=== PATIENT | female | born 1930 | race Caucasian/White ===

== ENCOUNTER 2016-10-03 07:17 | Observation (INO) | payer OTHER, BC ==
--- NOTE | 2016-10-03 07:29 | EDPHY ---
HPI/HX/ROS/PE/MDM Narrative: CHIEF COMPLAINT: Nausea HISTORY OF PRESENT ILLNESS: This patient is an 86 year old woman presenting with acute nausea and urgency to have a bowel movement, onset this morning. It is associated with mild-moderate abdominal discomfort. She was able to walk to the bathroom, but did not have any episodes of vomiting or diarrhea. She denies fever, flank pain, dysuria, or other urinary complaints. She has had a cough for the last four days, see review of systems, however denies nausea, vomiting, or diarrhea before this morning. REVIEW OF SYSTEMS: The patient was seen at [facility] yesterday, for evaluation of a four day history of mildly productive cough. She was diagnosed with a viral bronchitis and prescribed an albuterol inhaler. She did not fill the albuterol inhaler because she did not feel that it was necessary. She denies shortness of breath or chest pain. Denies history of COPD or pulmonary disease. Aside from elements discussed in the HPI, a comprehensive 10-point review of systems was reviewed and is negative (although somewhat limited secondary to poor historian). 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 Chakraborty, non-smoker, no alcohol, lives alone, VITAL SIGNS: Reviewed by me GENERAL: Well-developed, well-nourished, resting comfortably in no respiratory distress. HEENT: Atraumatic. Eyes: No icterus, no injection. Mouth: moist mucous membranes. No erythema or lesions. Neck: supple with no adenopathy. LUNGS: Clear to auscultation bilaterally, no wheezes, rhonchi or rales. CARDIAC: Regular rate and rhythm, harsh systolic murmur. ABDOMEN: Soft, mild epigastric tenderness, nondistended, bowel sounds normal, lower abdomen midline scar. BACK: No CVA tenderness. EXTREMITIES: No trauma. No edema. Range of motion is normal throughout. NEURO: Alert and oriented, grossly nonfocal. SKIN: Warm and dry, no rash. PSYCHIATRIC: Normal mentation, no agitation. Portions of this note were transcribed by a medical practice manager. I personally performed a history, physical exam, medical decision making, and confirmed accuracy of information the transcribed note. ED Course: 12-lead EKG interpreted by myself demonstrates sinus rhythm, rate 78, with PVCs. See formal interpretation in [facility]. An IV has been established. Chest X-ray interpreted by myself shows no focal infiltrate, borderline enlarged cardiac silhouette. The patient is mildly hyponatremic with sodium of 129. Workup is otherwise normal. 1045: Re-evaluation, the patient reports feeling worse with increased nausea, generalized abdominal discomfort, and belching. IV Protonix and abdomen CT ordered. 1155: Abdomen CT is negative for acute findings. The patient continues to feel poorly. She does not feel comfortable with discharge to home. She lives alone. The patient will be admitted to the hospital. I consulted with the hospitalist service. Dr. Dixon accepts admission. MDM: After obtaining the patients history and performing an examination, differential diagnosis of patients nausea, pain, and respiratory complaints was considered included but not limited to appendicitis, cholecystitis, gastritis, pancreatitis, kidney stones, urinary tract infections, influenza, gastroenteritis, diverticulitis, bronchitis, electrolyte abnormalities, dehydration and other causes. - Data Points Imaging Results: Imaging Impressions Chest X-Ray 10/03/16 07:42 Impression: 1. Query COPD/chronic bronchitis. 2. See above report for additional findings. Laboratory Results: Laboratory Results 10/03/16 07:42 10/03/16 07:42 10/03/16 10/03/16 10/03/16 10:40 09:07 07:42 WBC RBC Hgb Hct MCV MCH MCHC RDW Plt Count MPV Neut % (Auto) Lymph % (Auto) [place] % (Auto) Eos % (Auto) Baso % (Auto) Nucleat RBC Rel Count Absolute Neuts (auto) Absolute Lymphs (auto) Absolute Monos (auto) Absolute Eos (auto) Absolute Basos (auto) Absolute Nucleated RBC Immature Gran % Immature Gran # D-Dimer 0.42 ug/mLFEU ug/mLFEU (0.00-0.50) Sodium Potassium Chloride Carbon Dioxide Anion Gap BUN Creatinine Estimated GFR Glucose Calcium Total Bilirubin Conjugated Bilirubin Unconjugated Bilirubin AST ALT Alkaline Phosphatase Troponin I Total Protein Albumin Lipase Urine Color YELLOW Urine Appearance HAZY Urine pH 7.0 (5.0-7.5) Ur Specific [place] 1.012 (1.002-1.030) Urine Protein NEGATIVE (NEGATIVE) Urine Ketones 2+ H (NEGATIVE) Urine Blood NEGATIVE (NEGATIVE) Urine Nitrate NEGATIVE (NEGATIVE) Urine Bilirubin NEGATIVE (NEGATIVE) Urine Urobilinogen NEGATIVE EU EU (0.2-1.0) Ur Leukocyte Esterase NEGATIVE (NEGATIVE) Ur Culture Indicated? NOT INDICATED (NI) Urine Glucose NEGATIVE (NEGATIVE) Influenza A & B (PCR) Pending 10/03/16 10/03/16 07:42 07:42 WBC 9.28 10^3/uL 10^3/uL (3.80-9.50) RBC 4.62 10^6/uL 10^6/uL (4.18-5.33) Hgb 15.0 g/dL g/dL (12.6-16.3) Hct 41.9 % % (38.0-47.0) MCV 90.7 fL fL (81.5-99.8) MCH 32.5 pg pg (27.9-34.1) MCHC 35.8 g/dL g/dL (32.4-36.7) RDW 12.8 % % (11.5-15.2) Plt Count 228 10^3/uL 10^3/uL (150-400) MPV 10.6 fL fL (8.7-11.7) Neut % (Auto) 48.0 % % (39.3-74.2) Lymph % (Auto) 43.1 % % (15.0-45.0) [place] % (Auto) 8.2 % % (4.5-13.0) Eos % (Auto) 0.1 % L % (0.6-7.6) Baso % (Auto) 0.4 % % (0.3-1.7) Nucleat RBC Rel Count 0.0 % % (0.0-0.2) Absolute Neuts (auto) 4.45 10^3/uL 10^3/uL (1.70-6.50) Absolute Lymphs (auto) 4.00 10^3/uL H 10^3/uL (1.00-3.00) Absolute Monos (auto) 0.76 10^3/uL 10^3/uL (0.30-0.80) Absolute Eos (auto) 0.01 10^3/uL L 10^3/uL (0.03-0.40) Absolute Basos (auto) 0.04 10^3/uL 10^3/uL (0.02-0.10) Absolute Nucleated RBC 0.00 10^3/uL 10^3/uL (0-0.01) Immature Gran % 0.2 % % (0.0-1.1) Immature Gran # 0.02 10^3/uL 10^3/uL (0.00-0.10) D-Dimer Sodium 129 mEq/L L mEq/L (134-144) Potassium 3.3 mEq/L L mEq/L (3.5-5.2) Chloride 90 mEq/L L mEq/L (97-110) Carbon Dioxide 27 mEq/l mEq/l (22-31) Anion Gap 12 mEq/L mEq/L (8-16) BUN 13 mg/dL mg/dL (7-23) Creatinine 0.8 mg/dL mg/dL (0.6-1.0) Estimated GFR > 60 Glucose 104 mg/dL H mg/dL (70-100) Calcium 9.5 mg/dL mg/dL (8.5-10.4) Total Bilirubin 0.8 mg/dL mg/dL (0.1-1.4) Conjugated Bilirubin 0.3 mg/dL mg/dL (0.0-0.5) Unconjugated Bilirubin 0.5 mg/dL mg/dL (0.0-1.1) AST 32 IU/L IU/L (14-46) ALT 34 IU/L IU/L (9-52) Alkaline Phosphatase 66 IU/L IU/L (38-126) Troponin I 0.018 ng/mL ng/mL (0-0.034) Total Protein 6.7 g/dL g/dL (6.3-8.2) Albumin 4.3 g/dL g/dL (3.5-5.0) Lipase 122.0 IU/L IU/L (23-300) Urine Color Urine Appearance Urine pH Ur Specific [place] Urine Protein Urine Ketones Urine Blood Urine Nitrate Urine Bilirubin Urine Urobilinogen Ur Leukocyte Esterase Ur Culture Indicated? Urine Glucose Influenza A & B (PCR) Medications Given: Discontinued Medications Sodium Chloride (Ns) 500 mls @ 0 mls/hr IV ONCE ONE PRN Reason: As Directed Stop: 10/03/16 07:42 Last Admin: 10/03/16 07:54 Dose: 500 mls Ondansetron HCl (Zofran) 4 mg IVP EDNOW ONE Stop: 10/03/16 07:42 Last Admin: 10/03/16 07:55 Dose: 4 mg Pantoprazole Sodium (Protonix) 40 mg IVP EDNOW ONE Stop: 10/03/16 10:48 Last Admin: 10/03/16 11:09 Dose: 40 mg General Time Seen by Provider: 10/03/16 07:27 Initial Vital Signs: Initial Vital Signs Temperature (C) 36.7 C 10/03/16 07:17 Heart Rate 85 10/03/16 07:17 Respiratory Rate 16 10/03/16 07:17 Blood Pressure 196/68 H 10/03/16 07:17 O2 Sat (%) 94 10/03/16 07:17 O2 Delivery Mode Room Air Allergies/Adverse Reactions: codeine [Codeine] Allergy (Unknown, Verified 08/26/15 05:06) oxycodone HCl [From Percocet] Allergy (Unknown, Verified 08/26/15 05:06) Home Medications: Medication Instructions Recorded Aspirin [Aspirin 81mg (*)] 81 mg PO DAILY 10/30/12 Lisinopril [Zestril 40 mg (*)] 40 mg PO DAILY 10/30/12 Multivitamins [Multivitamin (*)] 1 each PO DAILY 10/30/12 Polyethylene Glycol 3350 [Miralax 17 gm PO DAILY 10/30/12 17 gm (*)] Pramipexole Di-HCl [Mirapex 0.25 0.25 mg PO HS 10/30/12 mg (*)] Nortriptyline HCl [Pamelor 10 mg 10 mg PO DAILY 06/17/14 (*)] Gabapentin 1,200 mg PO BID 10/03/16 amLODIPine BESYLATE [Norvasc 2.5 2.5 mg PO DAILY 10/03/16 mg (*)] Departure - Departure Disposition: [facility] Acute Clinical Impression: Hyponatremia, Nausea Abdominal pain Qualifiers: Abdominal location: epigastric Qualified Code(s): R10.13 - Epigastric pain Condition: Good Report Scribed for: Jeannie Watkins Report Scribed by: Lupe Crystal Date of Report: 10/03/16 Time of Report: 07:37
--- NOTE | 2016-10-03 07:29 | CPEKG ---
Heart Rate: 78 RR Interval: 769 P-R Interval: 164 QRSD Interval: 94 QT Interval: 416 QTC Interval: 474 P [place]: 61 QRS [place]: -24 T Wave [place]: 36 EKG Severity - ABNORMAL ECG - EKG Impression: SINUS RHYTHM EKG Impression: LEFT VENTRICULAR HYPERTROPHY Electronically Signed By: Jeannie Watkins 03-Oct-2016 16:53:23
[2016-10-03] MEDS ORDERED: NS 500 ML IV ONE (07:41)
[2016-10-03] MEDS ORDERED: ONDANSETRON 4 MG/2 ML VIAL IVP ONE (07:41)
[2016-10-03 07:59] LABS: % IMMATURE GRANULYOCYTES 0.2 % (0.0-1.1); ABSOLUTE IMMATURE GRANULOCYTES 0.02 10^3/uL (0.00-0.10); ADD DIFF? NO; ADD MORPH? NO; ADD SCAN? NO; ATYPICAL LYMPHOCYTE FLAG 30 (0-99); FRAGMENT RBC FLAG 0 (0-99); HEMATOCRIT 41.9 % (38.0-47.0); LEFT SHIFT FLG 0 (0-99); LIPEMIA HEMOLYSIS FLAG 90 (0-99); MEAN CELL HEMOGLOBIN 32.5 pg (27.9-34.1); MEAN CELL HEMOGLOBIN CONCENTR. 35.8 g/dL (32.4-36.7); MEAN CELL VOLUME 90.7 fL (81.5-99.8); MEAN PLATELET VOLUME 10.6 fL (8.7-11.7); PLATELET CLUMPS FLAG 30 (0-99); PLATELET COUNT 228 10^3/uL (150-400); RED BLOOD CELL COUNT 4.62 10^6/uL (4.18-5.33); RED CELL DISTRIBUTION WIDTH 12.8 % (11.5-15.2)
[2016-10-03 08:08] LABS: ALANINE AMINOTRANSFERASE 34 IU/L (9-52); ALBUMIN 4.3 g/dL (3.5-5.0); ALKALINE PHOSPHATASE 66 IU/L (38-126); ANION GAP 12 mEq/L (8-16); ASPARTATE AMINOTRANSFERASE 32 IU/L (14-46); BILIRUBIN,TOTAL 0.8 mg/dL (0.1-1.4); BILIRUBIN-CONJUGATED 0.3 mg/dL (0.0-0.5); BILIRUBIN-UNCONJUGATED 0.5 mg/dL (0.0-1.1); CALCIUM 9.5 mg/dL (8.5-10.4); CARBON DIOXIDE 27 mEq/l (22-31); CHLORIDE 90 mEq/L (97-110); CREATININE 0.8 mg/dL (0.6-1.0); GLOMERULAR FILTRATION RATE > 60; GLUCOSE 104 mg/dL (70-100); POTASSIUM 3.3 mEq/L (3.5-5.2); SODIUM 129 mEq/L (134-144); TOTAL PROTEIN 6.7 g/dL (6.3-8.2)
[2016-10-03 08:20] LABS: TROPONIN I 0.018 ng/mL (0-0.034)
[2016-10-03 10:17] LABS: COLOR YELLOW; LEUKOCYTE ESTERASE,URINE NEGATIVE (NEGATIVE); NITRITE,URINE NEGATIVE (NEGATIVE)
[2016-10-03] MEDS ORDERED: PANTOPRAZOLE SODIUM 40 MG VIAL IVP ONE (10:47)
[2016-10-03] MEDS ORDERED: IOPAMIDOL (ISOVUE-300) 100 ML BTL IV ONE (10:50)
[2016-10-03] MEDS ORDERED: NS 100 ML BAG IV ONE (10:55)
[2016-10-03] MEDS ORDERED: ONDANSETRON 4 MG/2 ML VIAL IVP PRN (15:54)
[2016-10-03] MEDS ORDERED: ACETAMINOPHEN 325 MG TAB PO PRN (15:54)
[2016-10-03] MEDS ORDERED: ZOLPIDEM TARTRATE 5 MG TAB PO PRN (15:54)
[2016-10-03] MEDS ORDERED: NS 1,000 ML IV SCH (16:00)
--- NOTE | 2016-10-03 17:54 | HOSPPROG ---
Hospitalist Progress Note Assessment/Plan: HISTORY AND PHYSICAL CC:Cough HISTORY: This patient came to the ER today with complaint of 3 days of coughing which has been mildly productive of slightly discolored phlegm. There has been no chest pain shortness of breath or fever symptoms. She has not checked her temperature. Today she developed some abdominal ache and mild nausea but did not have any vomiting or change in bowel function. For these reasons she presented to the emergency room. Notably she was seen at an urgent care for the cough 2 days ago and was diagnosed with possible bronchitis and given a prescription for some steroid. She did not fill out the prescription for steroid. ROS: A comprehensive 10 system review revealed no other significant findings PAST MEDICAL HISTORY: 3 spine surgeries FAMILY MEDICAL HISTORY: No significant illnesses she is aware of in family members SOCIAL HISTORY: her 3 years ago. She had been living here in [facility] in [place] until 3 months ago when she moved to [facility]. She has had quite a bit of assistance getting moved into [facility] but is living in the independent living apartment section. She feels she is thriving well there overall. MEDICATIONS: The patients list has been reconciled by our clinical pharmacist in the EMR. I have reviewed the list and ordered appropriate medicines. PHYSICAL EXAMINATION: Vital Signs: Stable without fever Examination: General: alert, oriented, good mentation, relaxed Skin: warm, dry, good color, no rash HEENT: normal Neck: no mass or jvd Resps: relaxed Lungs: clear breath sounds Heart: regular, no murmur Abdomen: soft, nondistended, nontender, +BS, no mass Upper Extremities: normal Lower Extremities: no edema, warm No Bleeding or bruising Neurologic: normal speech/language, normal panel coverer, no focal weakness IV site: looks normal LABORATORY DATA: laboratory data are reviewed and unremarkable test for influenza is negative RADIOLOGY STUDIES: CT scan of the abdomen and chest x-ray are both done in the ER. I have reviewed the images for both of these studies and I do not find any significant Acuteabnormality in either of the studies. she does have remarkable hyperexpansion of her lungs on chest x-ray but denies any history of smoking. I have reviewed the radiologist's report as well. ASSESSMENT: 1-Probable upper respiratory infection, viral 2-Generalized weakness due to above not feeling safe to ambulate at home all PLANS: Will observe the patient here over night and give some gentle hydration reassess her ambulation in the morning. I suspect she will do quite well. will check a viral respiratory panel I have reviewed the patient's case in detail with Dr. Watkins Objective: Vital Signs Temp Pulse Resp BP Pulse Ox 36.9 C 84 18 151/71 H 93 10/03/16 16:00 10/03/16 16:00 10/03/16 16:00 10/03/16 16:00 10/03/16 16:00 10/02/16 10/03/16 10/04/16 06:59 06:59 06:59 Intake Total 600 Balance 600 ICD10 Worksheet Patient Problems: Problems Problem Status Onset Hyponatremia Acute Nausea Acute
[2016-10-03] MEDS ORDERED: PRAMIPEXOLE 0.25 MG TAB PO SCH ×2 (18:00→21:00)
[2016-10-03] MEDS: GABAPENTIN 400 MG CAP PO SCH (20:56)
[2016-10-03] MEDS ORDERED: NON-FORMULARY NEW DRUG (Gabapentin [Gabapentin] 1,200 MG) PO SCH (21:00)
[2016-10-04 05:32] LABS: ANION GAP 6 mEq/L (8-16); CALCIUM 8.6 mg/dL (8.5-10.4); CARBON DIOXIDE 25 mEq/l (22-31); CHLORIDE 98 mEq/L (97-110); CREATININE 0.8 mg/dL (0.6-1.0); GLOMERULAR FILTRATION RATE > 60; GLUCOSE 91 mg/dL (70-100); POTASSIUM 3.4 mEq/L (3.5-5.2); SODIUM 129 mEq/L (134-144)
[2016-10-04 07:43] VITALS: BP 123/50; PULSE 71; RESP 14; TEMP 97.9; O2SAT 92
[2016-10-04] MEDS: GABAPENTIN 400 MG CAP PO SCH (07:54)
[2016-10-04] MEDS ORDERED: NORTRIPTYLINE HCL 10 MG CAP PO SCH (09:00)
[2016-10-04] MEDS ORDERED: ENOXAPARIN 30 MG/0.3 ML SYR SC SCH (09:00)
[2016-10-04] MEDS ORDERED: POLYETHYLENE GLYCOL 3350 17 GM PKT PO SCH (09:00)
[2016-10-04] MEDS ORDERED: MULTIVITAMINS 1 EACH TAB PO SCH (09:00)
[2016-10-04] MEDS ORDERED: ASPIRIN 81 MG CHEWABLE TAB PO SCH (09:00)
[2016-10-04] MEDS ORDERED: LISINOPRIL 40 MG TAB PO SCH (09:00)
--- NOTE | 2016-10-04 11:21 | PDDCSUM ---
Discharge Summary Discharge Summary: DISCHARGE DIAGNOSES: -Likely viral upper respiratory infection -weakness, resolved -abdominal pain, uncertain etiology, resolved HOSPITAL COURSE SUMMARY: This patient had typical symptoms of viral upper respiratory infection. She had some abdominal pain and became fairly weak. Extensive evaluation revealed no cause of any concerning abdominal abnormalities. Her abdominal symptoms resolved entirely on the day of admission and she has been eating well here since the time of admission without nausea vomiting or pain. She is up walking well took a shower today. She has had no fever no hypoxemia or shortness of breath. There has been nothing focal in terms of weakness which was a generalized weakness and is completely resolved at this time. She has mild cough but no other significant respiratory symptoms at this time. PENDING TEST RESULTS: None MEDICATION CHANGES: None FOLLOW-UP PLAN: With her primary care physician if there is any failure of her symptoms to resolve
[2016-10-04] MEDS ORDERED: PRAMIPEXOLE 0.25 MG TAB PO SCH (18:00)
== END 2016-10-04 11:51 | disposition home or self-care (01) ==
LOC: EDUNIT# → F3E 13:12
PROVIDERS: ADMIT Internal Medicine; ATTEND Internal Medicine
DX: J06.9 Acute upper respiratory infection, unspecified (principal); R10.13 Epigastric pain; E87.1 Hypo-osmolality and hyponatremia; R53.1 Weakness; I10 Essential (primary) hypertension; Z85.118 Personal history of other malignant neoplasm of bronchus and lung; Z85.820 Personal history of malignant melanoma of skin
CPT/HCPCS: 71020; 74177; 93005; G0378; J1650; J2405; Q9967; 96374

== ENCOUNTER → 2017-01-01 | Outpatient (CLI) | payer OTHER, BC | LOC: BMCIMAGING 08:40 | PROVIDERS: ATTEND Orthopaedic Surgery | DX: M25.561 Pain in right knee (principal); M25.562 Pain in left knee ==

== ENCOUNTER 2017-06-01 06:35 | Inpatient (IN) | payer OTHER, BC ==
[2017-06-01] MEDS ORDERED: NS 1,000 ML IV ONE (07:16)
[2017-06-01 07:20] LABS: PLATELET COUNT 197 10^3/uL (150-400)
--- NOTE | 2017-06-01 07:31 | EDPHY ---
HPI/HX/ROS/PE/MDM Narrative: CHIEF COMPLAINT: Cough, abdominal pain HPI: The patient is an 86 y/o female with a history of melanoma with mets to the lung and pancreatitis, complaining of a cough and abdominal pain. On Wednesday, 2 days ago, she developed a cough associated with clear sputum, but began to feel better on Wednesday. This morning her abdomen began to feel sore, but this pain is different from her prior pancreatitis. Was subjectively febrile with a temperature of 99. She has only been drinking fluids and has not been eating since Wednesday. Denies vomiting, urinary or bowel complaints, chest pain or other pertinent symptoms. REVIEW OF SYSTEMS: Aside from elements discussed in the HPI, a comprehensive 10-point review of systems was reviewed and is negative. PMH: Melanoma with metastasis to the lung, nonalcoholic pancreatitis, hypertension, hyponatremia, aortic stenosis, back surgery x 3 SOCIAL HISTORY: Lives in [place], retired, PHYSICAL EXAM: General: Patient is alert, in no acute distress. ENT: Eyes are normal to inspection. ENT inspection normal. Neck: Normal inspection. Full range of motion. Respiratory: No respiratory distress. Breath sounds normal bilaterally. Cardiovascular: Regular rate and rhythm. Strong peripheral pulses. Normal cap refill. Abdomen: The abdomen is nontender to palpation. There are no peritoneal signs. There are normal bowel sounds. Back: Normal to inspection. No tenderness to palpation. Skin: Normal color. No rash. Warm and dry. Extremities: Normal appearance. Full range of motion. Neuro: Oriented x3. Normal motor function. Normal sensory function. Portions of this note were transcribed by an ED scribe. I personally performed the history, physical exam, and medical decision making; and confirm the accuracy of the information in the transcribed note. ED Course: 0740: Patient is requesting only a flu test and blood work are preformed during this ED visit. 0843: Patient has flu A and is hyponatremic with a sodium level of 126. She does not normally run this hyponatremic. 75mg PO Tamiflu administered. 0844: Reassessed patient and discussed laboratory results. She would like to be admitted. 0850: Consulted with hospitalist service, Dr. Smith accepts admission of this patient. MDM: This elderly patient with multiple co-morbidities presents with diffuse malaise and difficulty performing ADLs. An extensive workup is negative for ACS, PNA, septic shock, acute abdomen, but positive for influenza A which I believe is the cause of her symptoms. She does not feel safe going home. We will admit for observation and further workup. - Data Points Imaging Results: Imaging Impressions Chest X-Ray 06/01/17 07:16 Impression: No acute abnormality. Laboratory Results: Laboratory Results 06/01/17 06:49 06/01/17 06:49 06/01/17 06/01/17 06/01/17 08:20 07:53 06:49 WBC RBC Hgb Hct MCV MCH MCHC RDW Plt Count MPV Neut % (Auto) Lymph % (Auto) [place] % (Auto) Eos % (Auto) Baso % (Auto) Nucleat RBC Rel Count Absolute Neuts (auto) Absolute Lymphs (auto) Absolute Monos (auto) Absolute Eos (auto) Absolute Basos (auto) Absolute Nucleated RBC Immature Gran % Immature Gran # Sodium Potassium Chloride Carbon Dioxide Anion Gap BUN Creatinine Estimated GFR Glucose Calcium Lipase 115 IU/L IU/L (23-300) Urine Color YELLOW Urine Appearance HAZY Urine pH 7.0 (5.0-7.5) Ur Specific [place] 1.006 (1.002-1.030) Urine Protein NEGATIVE (NEGATIVE) Urine Ketones TRACE H (NEGATIVE) Urine Blood NEGATIVE (NEGATIVE) Urine Nitrate NEGATIVE (NEGATIVE) Urine Bilirubin NEGATIVE (NEGATIVE) Urine Urobilinogen NEGATIVE EU EU (0.2-1.0) Ur Leukocyte Esterase 1+ H (NEGATIVE) Urine RBC Not Reported Urine WBC 1-3 /hpf /hpf (0-3) Ur Epithelial Cells TRACE /lpf /lpf (NONE-1+) Urine Bacteria TRACE /hpf H /hpf (NONE SEEN) Urine Mucus TRACE /lpf /lpf (NONE-1+) Urine Glucose NEGATIVE (NEGATIVE) Nasal Influenza A PCR FLU A DETECTED H (NEGATIVE) Nasal Influenza B PCR NEGATIVE FOR FLU B (NEGATIVE) 06/01/17 06/01/17 06:49 06:49 WBC 7.64 10^3/uL 10^3/uL (3.80-9.50) RBC 4.12 10^6/uL L 10^6/uL (4.18-5.33) Hgb 14.0 g/dL g/dL (12.6-16.3) Hct 38.2 % % (38.0-47.0) MCV 92.7 fL fL (81.5-99.8) MCH 34.0 pg pg (27.9-34.1) MCHC 36.6 g/dL g/dL (32.4-36.7) RDW 12.6 % % (11.5-15.2) Plt Count 197 10^3/uL 10^3/uL (150-400) MPV 10.4 fL fL (8.7-11.7) Neut % (Auto) 58.4 % % (39.3-74.2) Lymph % (Auto) 26.4 % % (15.0-45.0) [place] % (Auto) 14.3 % H % (4.5-13.0) Eos % (Auto) 0.1 % L % (0.6-7.6) Baso % (Auto) 0.5 % % (0.3-1.7) Nucleat RBC Rel Count 0.0 % % (0.0-0.2) Absolute Neuts (auto) 4.46 10^3/uL 10^3/uL (1.70-6.50) Absolute Lymphs (auto) 2.02 10^3/uL 10^3/uL (1.00-3.00) Absolute Monos (auto) 1.09 10^3/uL H 10^3/uL (0.30-0.80) Absolute Eos (auto) 0.01 10^3/uL L 10^3/uL (0.03-0.40) Absolute Basos (auto) 0.04 10^3/uL 10^3/uL (0.02-0.10) Absolute Nucleated RBC 0.00 10^3/uL 10^3/uL (0-0.01) Immature Gran % 0.3 % % (0.0-1.1) Immature Gran # 0.02 10^3/uL 10^3/uL (0.00-0.10) Sodium 126 mEq/L L mEq/L (134-144) Potassium 3.3 mEq/L L mEq/L (3.5-5.2) Chloride 89 mEq/L L mEq/L (97-110) Carbon Dioxide 28 mEq/l mEq/l (22-31) Anion Gap 9 mEq/L mEq/L (8-16) BUN 9 mg/dL mg/dL (7-23) Creatinine 0.8 mg/dL mg/dL (0.6-1.0) Estimated GFR > 60 Glucose 124 mg/dL H mg/dL (70-100) Calcium 9.3 mg/dL mg/dL (8.5-10.4) Lipase Urine Color Urine Appearance Urine pH Ur Specific [place] Urine Protein Urine Ketones Urine Blood Urine Nitrate Urine Bilirubin Urine Urobilinogen Ur Leukocyte Esterase Urine RBC Urine WBC Ur Epithelial Cells Urine Bacteria Urine Mucus Urine Glucose Nasal Influenza A PCR Nasal Influenza B PCR Medications Given: Discontinued Medications Sodium Chloride (Ns) 1,000 mls @ 0 mls/hr IV ONCE ONE; Wide Open PRN Reason: Protocol Stop: 06/01/17 07:17 Last Admin: 06/01/17 07:41 Dose: 1,000 mls General Time Seen by Provider: 06/01/17 07:22 Initial Vital Signs: Initial Vital Signs Temperature (C) 37.6 C 06/01/17 06:41 Heart Rate 74 06/01/17 06:41 Respiratory Rate 20 06/01/17 06:41 Blood Pressure 147/79 H 06/01/17 06:41 O2 Sat (%) 92 06/01/17 06:41 O2 Delivery Mode Room Air Allergies/Adverse Reactions: codeine [Codeine] Allergy (Unknown, Verified 06/01/17 06:41) oxycodone HCl [From Percocet] Allergy (Unknown, Verified 06/01/17 06:41) Home Medications: Medication Instructions Recorded Aspirin [Aspirin 81mg (*)] 81 mg PO DAILY 10/30/12 Multivitamins [Multivitamin (*)] 1 each PO DAILY 10/30/12 Polyethylene Glycol 3350 [Miralax 17 gm PO DAILY 10/30/12 17 gm (*)] Pramipexole Di-HCl [Mirapex 0.25 0.25 mg PO DAILY@18 10/30/12 mg (*)] Nortriptyline HCl [Pamelor 10 mg 10 mg PO HS 06/17/14 (*)] Gabapentin 1,200 mg PO BID 10/03/16 amLODIPine BESYLATE [Norvasc 2.5 2.5 mg PO DAILY 10/03/16 mg (*)] Cholecalciferol Vit D3 [Vitamin D3 2,000 units PO DAILY 06/01/17 2000 units tab (OTC)] Docusate Sodium [Colace 100 MG (*)] 100 mg PO DAILY 06/01/17 Herbals/Supplements -Info Only 1 ea PO DAILY 06/01/17 LISINOPRIL/HYDROCHLOROTHIAZIDE 1 each PO DAILY 06/01/17 [PRINZIDE 20-25 MG TABLET] Departure - Departure Disposition: [facility] Acute Clinical Impression: Influenza A, Hyponatremia Condition: Fair Report Scribed for: Chad Charles Report Scribed by: Mirna Maki Date of Report: 06/01/17 Time of Report: 07:31
[2017-06-01] MEDS ORDERED: OSELTAMIVIR PHOSPHATE 75 MG CAP PO ONE (08:43)
[2017-06-01] MEDS ORDERED: ONDANSETRON 4 MG/2 ML VIAL IVP PRN (09:04)
[2017-06-01] MEDS ORDERED: ACETAMINOPHEN 325 MG TAB PO PRN (09:04)
[2017-06-01] MEDS ORDERED: ONDANSETRON DISINTEGRATING 4 MG TAB PO PRN (09:04)
--- NOTE | 2017-06-01 09:33 | ASMTCMCOM ---
CM Note CM Note Notes: Pt in FED from [facility]. Next of kin, son Torey lives in [place]. When CM entered the room Pt was alone and sleeping soundly. CM to return when pt. wakes. Date Signed: 06/01/2017 09:33 AM Electronically Signed By:Alfredito Cardona LCSW
[2017-06-01] MEDS ORDERED: POTASSIUM CL 20 MEQ TAB PO ONE (13:41)
--- NOTE | 2017-06-01 14:25 | GHP ---
[f rep st] HISTORY AND PHYSICAL DATE OF ADMISSION: 06/01/2017 CHIEF COMPLAINT: Weakness and shortness of breath. 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 The edgar ent reports being in her normal state of health; recently, when watching a movie at her [facility] facility, the patient reports that there was a gentleman in the room who had a terrible cough and coughed throughout the presentation. She then began developing symptoms the following day. The edgar ent endorses shortness of breath, myalgias, subjective fevers, chills. No nausea or vomiting, no matthew rrhea, no dysuria, no rashes that she knows of. PAST MEDICAL HISTORY: 1. Hypertension. 2. Aortic stenosis. 3. Melanoma with metastases to the lung. 4. Chronic back pain. 5. History of pancreatitis. 6. Restless leg syndrome. SOCIAL HISTORY: The patient does not smoke, drink, or use illicit drugs. FAMILY HISTORY: Both parents are . REVIEW OF SYSTEMS: A 10-point review of systems is negative, with the exception of that reported in the HPI. ADVANCE DIRECTIVES: Patient is full cor, full tube. Her two sons would be her medical decision-make rs. PHYSICAL EXAMINATION: VITAL SIGNS: Blood pressure 135/59, heart rate 81, respiratory rate 18, 91% o n room air, 37.5. GENERAL: This is a frail-appearing, elderly female, curled up in bed with blanket s over her head. HEENT: Notable for dry mucous membranes. Eye exam is negative for any icterus. C ARDIAC: Patient is regular rate and rhythm, with a loud systolic murmur heard across the precordium. PULMONARY: Good respiratory effort. She is clear to auscultation bilaterally. GASTROINTESTINAL: Positive bowel sounds. ABDOMEN: Soft and nontender. MUSCULOSKELETAL: Negative for any lower extr emity edema. SKIN: Negative for any rashes. NEUROLOGIC: She is alert and oriented x3. PSYCHIATRI C: She is pleasant and cooperative on interview and examination. DATA: White count 7.6, hematocrit 38.2, platelets of 197. Sodium of 126, creatinine 0.8. Urinalysi s is negative. Influenza A is detected by PCR from her nasal swab. Chest x-ray, which I personally reviewed and interpreted, shows no acute infiltrates or edema. ASSESSMENT AND PLAN: This is an 86-year-old female, presenting with fatigue and shortness of breath. 1. Acute influenza A. Patient's symptoms did start in the last 24 hours. We will initiate Tamiflu and provide supportive treatment with intravenous fluids and symptom control. Currently not requirin g oxygen or pulmonary care. Will monitor closely. 2. Acute hyponatremia. Patient appears to have baseline serum sodiums in the last several years in the high 120s. Of note, she is on hydrochlorothiazide, outpatient. We will hold the hydrochlorothia zide. Patient received 1 L of normal saline. We will recheck her serum sodium before giving an jayson tional fluids. 3. Hypertension. We will continue her outpatient medications. Her blood pressure should tolerate b ased on her vital signs at presentation. 4. Restless legs syndrome. We will continue patient's Mirapex at night. 5. Prophylaxis with Lovenox. DIET: Regular. DISPOSITION: She can tolerate disposition, I expect, in greater than 2 midnights, as the patient is nearly 88 years old, presenting with acute influenza A. She appears ill and feels ill on presentatio n. I have discussed the case with the emergency room physician. Patient will be triaged to the [facility] for care. /[id number]/MODL
--- NOTE | 2017-06-01 15:09 | PDMN ---
Medical Necessity Medical necessity: est los>2mn for acute influenza A, w/SOB, myalgias, subjective fevers, chills, and hyponatremia; admitted for supportive care, Tamiflu, monitoring of Na and need for IVF; comorbid advanced age, htn, hx melanoma w/lung mets; per order and H&P 06/01/17
[2017-06-01] MEDS ORDERED: PRAMIPEXOLE 0.25 MG TAB PO SCH (18:00)
[2017-06-01] MEDS: OSELTAMIVIR PHOSPHATE 75 MG CAP PO SCH (18:00)
[2017-06-01] MEDS: GABAPENTIN 400 MG CAP PO SCH (19:31)
[2017-06-01] MEDS ORDERED: NORTRIPTYLINE HCL 10 MG CAP PO SCH (21:00)
[2017-06-01] MEDS ORDERED: NON-FORMULARY NEW DRUG (Gabapentin [Gabapentin] 1,200 MG) PO SCH (21:00)
[2017-06-02 05:48] LABS: PLATELET COUNT 156 10^3/uL (150-400)
[2017-06-02] MEDS: GABAPENTIN 400 MG CAP PO SCH (07:48)
[2017-06-02] MEDS: OSELTAMIVIR PHOSPHATE 75 MG CAP PO SCH (07:48)
[2017-06-02] MEDS ORDERED: Herbals/Supplements -Info Only PO SCH (09:00)
[2017-06-02] MEDS ORDERED: ENOXAPARIN 30 MG/0.3 ML SYR SC SCH (09:00)
[2017-06-02] MEDS ORDERED: CHOLECALCIFEROL VIT D3 2,000 UNITS TAB/CAP PO SCH (09:00)
[2017-06-02] MEDS ORDERED: DOCUSATE SODIUM 100 MG CAP PO SCH (09:00)
[2017-06-02] MEDS ORDERED: ASPIRIN 81 MG CHEWABLE TAB PO SCH (09:00)
[2017-06-02] MEDS ORDERED: POLYETHYLENE GLYCOL 3350 17 GM PKT PO SCH (09:00)
[2017-06-02] MEDS ORDERED: MULTIVITAMINS 1 EACH TAB PO SCH (09:00)
[2017-06-02 11:16] VITALS: BP 91/42; PULSE 64; RESP 12; TEMP 98.1; O2SAT 93
--- NOTE | 2017-06-02 12:00 | PDIAF ---
- Diagnosis Diagnosis: influenza a Code Status: Full Code - Medication Management Discharge Medications: Medications to Continue on Transfer Aspirin [Aspirin 81mg (*)] 81 mg PO DAILY 10/30/12 [Last Taken 10/02/16] Multivitamins [Multivitamin (*)] 1 each PO DAILY 10/30/12 [Last Taken Unknown] Polyethylene Glycol 3350 [Miralax 17 gm (*)] 17 gm PO DAILY 10/30/12 [Last Taken Unknown] Pramipexole Di-HCl [Mirapex 0.25 mg (*)] 0.25 mg PO DAILY@18 10/30/12 [Last Taken 10/02/16] Nortriptyline HCl [Pamelor 10 mg (*)] 10 mg PO HS 06/17/14 [Last Taken Unknown] Gabapentin 1,200 mg PO BID 10/03/16 [Last Taken Unknown] Cholecalciferol Vit D3 [Vitamin D3 2000 units tab (OTC)] 2,000 units PO DAILY [Last Taken Unknown] Docusate Sodium [Colace 100 MG (*)] 100 mg PO DAILY 06/01/17 [Last Taken Unknown ] Herbals/Supplements -Info Only 1 ea PO DAILY 06/01/17 [Last Taken Unknown] Acetaminophen [Tylenol 325mg (*)] 650 mg PO Q4HRS PRN tab 06/02/17 [Last Taken Unknown] Oseltamivir Phosphate 30 mg PO BID #7 capsule 06/02/17 [Last Taken Unknown] Discharge Medications: Refer to the Discharge Home Medication list for PRN reason. - Orders Services needed: Home Care, Registered Nurse Home Care Face to Face: I certify that this patient was under my care and that I had the required [id number] encounter meeting the encounter requirements on the discharge day. My findings support the fact that the patient is homebound as defined in Home Care Face to Face Continued: CMS Chapter 7 Medicare Benefits Manual 30.1.1 , The condition of the patient is such that there exists a normal inability to leave home and consequently, leaving home would require a considerable and taxing effort. Isolation Type: Droplet Isolation Diet Recommendation: no restrictions on diet Diet Texture: Regular Texture Diet - Follow Up Care Current Providers and Referrals: Patient,NotPresent [Unknown] - As per Instructions
--- NOTE | 2017-06-02 16:28 | ASDISCHSUM ---
Discharge Information Plan Status:Home with Home Health Medically Cleared to Leave:06/01/2017 Discharge Date:06/02/2017 02:50 PM CM D/C Disposition: ADT D/C Disposition:Home Health Service Projected Discharge Date:06/02/2017 11:00 AM Transportation at D/C: Discharge Delay Reason: Follow-Up Date:06/02/2017 11:00 AM Discharge Slot: Final Diagnosis: Placement Information Referral Type:*Home Health Care Services Referral ID:[id number] Provider Name:[facility] Care Address 1:[address] [place] [address] Address 2: City:[place] Selection Factors: State:[place] Patient Contact Information Contact Name:MICKIE Relationship:Son Address: Work Phone: City:[facility] Phone: State/Zip Code:[place] Email: Financial Information Financial Class: Primary Plan Desc:MEDICARE INPATIENT Primary Plan Number:[id number] Secondary Plan Desc: OUT OF STATE [facility] Secondary Plan Number:[id number] Assessment Information [facility] CM Progress Note CM Note CM Note Notes: Pt in [facility] from [facility]. Next of kin, marcelino Lema lives in [place]. When CM entered the room Pt was alone and sleeping soundly. CM to return when pt. wakes. Date Signed: 06/01/2017 09:33 AM Electronically Signed By:Alfredito Cardona LCSW BRYANE MELISSA Length of stay for Answers: Less than 1 day current admission Acuity / Level of Care Answers: Was the patient admitted to hospital via the emergency department? Yes: Emergency dept visits in Answers: 1 last 6 months Score: 4 Date Signed: 06/01/2017 09:35 AM Electronically Signed By:Alfredito Cardona LCSW Case Management Discharge Plan Note Case Management Discharge Discharge Order Complete? Answers: Yes Patient to Obtain Answers: Independently Medications Transportation Arranged Answers: Family/Friends EMTALA Complete Answers: No Case Management Transport Answers: Yes Form Complete Faxed Final Orders Answers: Yes Agency/Facility Transfer Answers: Yes Report Printed & Faxed to Receiving Agency Family Notified Answers: No Discharge Comments Notes: CM spoke w/ Dr. Coleman regarding d/c POC. CM met w/ pt for dispo planning. Pt is agreeable to having a RN come check in on her. Pt would like referral made to [facility]. [facility] is able to accept pt. Pt reports having a caregiver come once a week and having a good rapport w/ her. CM available for changes. Plan: BCOMID; RN Date Signed: 06/02/2017 12:16 PM Electronically Signed By:RASHEEDA Peterson Intervention Information Intervention Type:*Incorrect Registration Date of Service:06/01/2017 03:10 PM Patient Type:Observation Staff Member:LINETTE Stevens Susan Hours: Discipline: Severity: Comment:
[2017-06-02] MEDS ORDERED: OSELTAMIVIR 6 MG/ML UDSYR PO SCH (18:00)
--- NOTE | 2017-06-03 03:03 | GDS ---
[f rep st] DISCHARGE SUMMARY DISCHARGE DIAGNOSES: 1. Acute influenza A. 2. Systemic inflammatory response syndrome secondary to acute influenza A. 3. Hypertension. 4. Metastatic melanoma. 5. Aortic stenosis. 6. Chronic back pain. 7. Restless leg syndrome. HISTORY OF PRESENT ILLNESS: An 86-year-old female, who presents with complaints of weakness and shor tness of breath. For details of the patient's initial presentation, please see the history and physi katie dated 06/01/2017. CONSULTATIVE SERVICES: None. PROCEDURES: None. HOSPITAL COURSE: Include: 1. Acute influenza A. patient had confirmed testing from the emergency department, was initiated on Tamiflu as she was within the 1st 36 hours of her symptoms. She had marked improvement in her sympt oms overnight, improved energy, was ambulating without complication and tolerating p.o. The patient will be discharged on renally dosed for her age 30 mg b.i.d. to complete a full 10 dose co urse. 2. Hyponatremia. Patient has recent chronic hyponatremia more profound at presentation with serum s odium at 126. She received gentle hydration in the emergency department with an improvement in her s odium back to her baseline 129. Patient is being taken off her chronic hydrochlorothiazide, and aske d to follow in her primary care office. 3. Hypertension. The patient did have low blood pressures during her hospital stay. I am discontin uing both of her blood pressure medications until she is followed by her primary care provider in the outpatient setting. I suspect she will creep back up to hypertensive levels and will likely need th e re-initiation of a non hydrochlorothiazide containing blood pressure medication. MEDICATIONS: At the time of disposition, please reference the med rec printed on 06/02/2017. FOLLOWUP APPOINTMENTS: Followup appointments include with her primary care provider for blood pressu re and laboratory check. PENDING STUDIES AT THE TIME OF THIS DICTATION: None. /[id number]/MODL
== END 2017-06-02 14:50 | disposition home health service (06) | DRG 194 ==
LOC: EDUNIT# → OBSVTOIN 09:04 → F3E 09:52
PROVIDERS: ADMIT Internal Medicine; ATTEND Internal Medicine
DX: J10.1 Influenza due to other identified influenza virus with other respiratory manifestations (principal); E87.1 Hypo-osmolality and hyponatremia; I10 Essential (primary) hypertension; C43.9 Malignant melanoma of skin, unspecified; G89.29 Other chronic pain; I35.0 Nonrheumatic aortic (valve) stenosis; G25.81 Restless legs syndrome
CPT/HCPCS: 97165-GO; 97535-GO; G8987-GO-CI; G8988-GO-CI; G8989-GO-CI; J1650; J2405

== ENCOUNTER 2017-07-27 22:43 | Emergency (ER) | payer OTHER, BC ==
--- NOTE | 2017-07-27 22:47 | EDPHY ---
H & P Time Seen by Provider: 07/27/17 22:44 HPI/ROS: HPI The patient presents with constipation and abdominal pain, she is brought in by ambulance from [facility]. The pain is rated as an 8 to 9/10. She feels it throughout her abdomen it is constant. It does if there is a brick in her rectum. She feels as if she needs to have a bowel movement, though is unable. She believes her last bowel movement was about 2 days ago. She does have a history of constipation. She does not have any nausea or vomiting. She does not have any fever.. REVIEW OF SYSTEMS Constitutional: No fever, no chills. Eyes: No discharge. ENT: No sore throat. Cardiovascular: No chest pain, no palpitations. Respiratory: No cough, no shortness of breath. Gastrointestinal: Positive for abdominal pain, no vomiting. Genitourinary: No hematuria. Musculoskeletal: No back pain. Skin: No rashes. Neurological: No headache. PMHx: HTN Soc Hx: resides at [facility] PHYSICAL General Appearance: Alert, no distress Eyes: Pupils equal and round no pallor or injection ENT, Mouth: Mucous membranes moist Respiratory: There are no retractions, lungs are clear to auscultation Cardiovascular: Regular rate and rhythm Gastrointestinal: Abdomen is soft with tenderness in all quadrants without rebound or guarding Neurological: A&O, moves all extremities Skin: Warm and dry, no rashes Musculoskeletal: Neck is supple non tender Extremities: symmetrical, full range of motion Psychiatric: Patient is oriented X 3, there is no agitation Source: Patient, EMS Exam Limitations: No limitations - Personal History Tetanus Vaccine Date: <10 YRS - Medical/Surgical History Hx Asthma: No Hx Chronic Respiratory Disease: No Hx Diabetes: No Hx Cardiac Disease: No Hx Renal Disease: No Hx Cirrhosis: No Hx Alcoholism: No Hx HIV/AIDS: No Hx Splenectomy or Spleen Trauma: No Other PMH: MELANOMA WITH MET TO LUNG (IN REMISSION), HTN, constipation, back surgery x 3, AORTIC STENOSIS, NONALCOHOLIC PANCREATITIS, restless leg syndrome, peripheral neuropathy - Social History Smoking Status: Never smoked Constitutional: Initial Vital Signs Temperature (C) 36.4 C 07/27/17 22:51 Heart Rate 82 07/27/17 22:51 Respiratory Rate 18 07/27/17 22:51 Blood Pressure 178/109 H 07/27/17 22:51 O2 Sat (%) 92 07/27/17 22:51 O2 Delivery Mode Room Air Allergies/Adverse Reactions: codeine [Codeine] Allergy (Unknown, Verified 06/01/17 06:41) oxycodone HCl [From Percocet] Allergy (Unknown, Verified 06/01/17 06:41) oxycodone HCl Allergy (Unknown, Uncoded 06/02/17 13:26) Home Medications: Medication Instructions Recorded Aspirin [Aspirin 81mg (*)] 81 mg PO DAILY 10/30/12 Multivitamins [Multivitamin (*)] 1 each PO DAILY 10/30/12 Polyethylene Glycol 3350 [Miralax 17 gm PO DAILY 10/30/12 17 gm (*)] Pramipexole Di-HCl [Mirapex 0.25 0.25 mg PO DAILY@18 10/30/12 mg (*)] Nortriptyline HCl [Pamelor 10 mg 10 mg PO HS 06/17/14 (*)] Gabapentin 1,200 mg PO BID 10/03/16 Cholecalciferol Vit D3 [Vitamin D3 2,000 units PO DAILY 06/01/17 2000 units tab (OTC)] Docusate Sodium [Colace 100 MG (*)] 100 mg PO DAILY 06/01/17 Herbals/Supplements -Info Only 1 ea PO DAILY 06/01/17 Acetaminophen [Tylenol 325mg (*)] 650 mg PO Q4HRS PRN tab 06/02/17 Oseltamivir Phosphate 30 mg PO BID #7 capsule 06/02/17 Medical Decision Making - Diagnostics Imaging Results: Imaging Impressions Abdomen CT 07/27/17 22:47 Impression: Constipation. Bowel wall thickening and adjacent inflammatory change in the rectosigmoid region. This could represent colitis. Recommend follow-up to exclude carcinoma. Results called and discussed with Ansley Winn MD at 07/28/2017 0:03. Differential Diagnosis: This is an 87-year-old female who presents brought in by ambulance for abdominal pain in association with constipation. She does have a history of constipation as well as pancreatitis. In the emergency department, patient was given fentanyl for pain. I then was able to perform manual disimpaction, removing large amount of hard stool which was in the rectal vault. She does have several small external hemorrhoids, non thrombosed. After this, the patient was able to have a large bowel movement on the bedside commode and felt much better. Labs were checked and did reveal a slightly elevated lipase which seems to be consistent with her prior history of pancreatitis. CT scan of the abdomen was performed which did show inflammation of the colon with bowel wall thickening. This could be related to colitis, verses malignancy, verses constipation. I have explained this to the patient, she has had a colonoscopy in the last several years though would prefer not to undergo a repeat 1. I explained then in that case, she can follow up with her primary care doctor and perhaps repeat CT scan can be performed. She feels much better and would like to go home and will be discharged with instructions on bowel regimen. - Data Points Laboratory Results: Laboratory Results 07/27/17 23:01 07/27/17 23:01 07/27/17 07/27/17 23: 23:01 WBC 12.65 10^3/uL H 10^3/uL (3.80-9.50) RBC 4.13 10^6/uL L 10^6/uL (4.18-5.33) Hgb 13.4 g/dL g/dL (12.6-16.3) Hct 39.6 % % (38.0-47.0) MCV 95.9 fL fL (81.5-99.8) MCH 32.4 pg pg (27.9-34.1) MCHC 33.8 g/dL g/dL (32.4-36.7) RDW 13.2 % % (11.5-15.2) Plt Count 213 10^3/uL 10^3/uL (150-400) MPV 10.6 fL fL (8.7-11.7) Neut % (Auto) 44.7 % % (39.3-74.2) Lymph % (Auto) 42.4 % % (15.0-45.0) Burke % (Auto) 10.6 % % (4.5-13.0) Eos % (Auto) 1.5 % % (0.6-7.6) Baso % (Auto) 0.6 % % (0.3-1.7) Nucleat RBC Rel Count 0.0 % % (0.0-0.2) Absolute Neuts (auto) 5.66 10^3/uL 10^3/uL (1.70-6.50) Absolute Lymphs (auto) 5.36 10^3/uL H 10^3/uL (1.00-3.00) Absolute Monos (auto) 1.34 10^3/uL H 10^3/uL (0.30-0.80) Absolute Eos (auto) 0.19 10^3/uL 10^3/uL (0.03-0.40) Absolute Basos (auto) 0.07 10^3/uL 10^3/uL (0.02-0.10) Absolute Nucleated RBC 0.00 10^3/uL 10^3/uL (0-0.01) Immature Gran % 0.2 % % (0.0-1.1) Immature Gran # 0.03 10^3/uL 10^3/uL (0.00-0.10) Sodium 137 mEq/L mEq/L (135-145) Potassium 3.4 mEq/L L mEq/L (3.5-5.2) Chloride 101 mEq/L mEq/L (97-110) Carbon Dioxide 23 mEq/l mEq/l (22-31) Anion Gap 13 mEq/L mEq/L (8-16) BUN 16 mg/dL mg/dL (7-23) Creatinine 0.8 mg/dL mg/dL (0.6-1.0) Estimated GFR > 60 Glucose 137 mg/dL H mg/dL (70-100) Calcium 9.4 mg/dL mg/dL (8.5-10.4) Total Bilirubin 0.3 mg/dL mg/dL (0.1-1.4) Conjugated Bilirubin 0.2 mg/dL mg/dL (0.0-0.5) Unconjugated Bilirubin 0.1 mg/dL mg/dL (0.0-1.1) AST 27 IU/L IU/L (14-46) ALT 37 IU/L IU/L (9-52) Alkaline Phosphatase 54 IU/L IU/L (38-126) Total Protein 6.5 g/dL g/dL (6.3-8.2) Albumin 4.1 g/dL g/dL (3.5-5.0) Lipase 337 IU/L H IU/L (23-300) Medications Given: Discontinued Medications Fentanyl (Sublimaze) 50 mcg IVP EDNOW ONE Stop: 07/27/17 23:05 Last Admin: 07/27/17 23:07 Dose: 50 mcg Departure - Departure Disposition: Home, Routine, Self-Care Clinical Impression: Colitis Constipation Qualifiers: Constipation type: unspecified constipation type Qualified Code(s): K59.00 - Constipation, unspecified Abdominal pain Qualifiers: Abdominal location: generalized Qualified Code(s): R10.84 - Generalized abdominal pain Condition: Good Instructions: Constipation (ED) Additional Instructions: Your CT scan shows that you have inflammation of the colon. This could be related to constipation. Please follow up with your primary care doctor to see if you should have any follow up testing. Referrals: Elizabeth Chakraborty MD [Primary Care Provider] - As per Instructions
[2017-07-27 22:53] VITALS: TEMP 97.5
[2017-07-27] MEDS ORDERED: fentaNYL 100 MCG/2 ML INJ IVP ONE (23:04)
[2017-07-27 23:06] LABS: PLATELET COUNT 213 10^3/uL (150-400)
[2017-07-27] MEDS ORDERED: IOPAMIDOL (ISOVUE-300) 100 ML BTL ONE (23:31)
[2017-07-28 00:42] VITALS: BP 182/87; PULSE 83; RESP 16; O2SAT 94
== END 2017-07-28 00:41 | disposition home or self-care (01) ==
LOC: EDUNIT#
DX: K59.00 Constipation, unspecified (principal); K52.9 Noninfective gastroenteritis and colitis, unspecified; I10 Essential (primary) hypertension; Z85.118 Personal history of other malignant neoplasm of bronchus and lung; Z79.82 Long term (current) use of aspirin
CPT/HCPCS: 74177; 96374; 99285; J3010; Q9967

== ENCOUNTER → 2018-03-01 | Outpatient (CLI) | payer OTHER, BC | LOC: FIMAGING 18:36 | PROVIDERS: ATTEND Neurological Surgery | DX: M51.06 Intervertebral disc disorders with myelopathy, lumbar region (principal); M48.062 Spinal stenosis, lumbar region with neurogenic claudication ==

== ENCOUNTER → 2018-05-11 | Outpatient (CLI) | payer OTHER, BC | LOC: BMCIMAGING 11:14 | PROVIDERS: ATTEND Internal Medicine | DX: M54.41 Lumbago with sciatica, right side (principal); M43.16 Spondylolisthesis, lumbar region ==